=== PATIENT | female | born 1980 | race Caucasian/White ===

== ENCOUNTER 2019-10-03 23:55 | Emergency (ER) | payer SELFPAY ==
--- NOTE | 2019-10-04 00:01 | ED.PDOC ---
History of Present Illness - General Time Seen by Provider: 10/04/19 00:00 Source: patient - History of Present Illness Initial Comments: 39 yo female with PMH of GERD, hx of alcohol abuse who presents with cc of abdominal distension and discomfort. Reports first noticed 2 days ago her abdomen seemed more distended than usual and it has continued to worsen further since then. Reports she usually has a "flat stomach" but now she states she feels like she is 6+ months . Reports mild generalized discomfort which radiates to her back, not worsened by position changes. Reports having normal BM's and passing gas without issue. Reports some nausea but no emesis. Denies any urinary sx's, chest pain, cough, fevers. Reports she feels her stomach has become so bloated it is making it slightly difficult to breathe. No meds tried at home for relief. Reports hx of heavy daily alcohol abuse for about 10 years, states quit 9 months ago and has been sober since. No known/reported liver disease. States she just moved here from [place], [place] as she just got and came to stay with her mother. Does not have a PCP. Takes citalopram, PRN albuterol, and Protonix as only medications. States about 6 months ago she had a bleeding peptic ulcer and had to EGD in [place], [place] at that time. Allergies/Adverse Reactions: Allergies NO KNOWN ALLERGY Allergy (Verified 10/04/19 01:11) Review of Systems - Review of Systems Review of Systems: 10/04/19 00:47 as per HPI All other Systems: Reviewed and Negative Family Medical History - Family History Mother Family History: No Known Physical Exam - Physical Exam General Appearance: Alert, Comfortable, No apparent distress Eye Exam: bilateral normal Ears, Nose, Throat: hearing grossly normal, normal ENT inspection, normal pharynx Neck: non-tender, full range of motion, supple, normal inspection Respiratory: chest non-tender, lungs clear, normal breath sounds, no respiratory distress, no accessory muscle use Cardiovascular/Chest: normal peripheral pulses, regular rate, rhythm, no gallop, no JVD, no murmur Peripheral Pulses: radial,right: 2+, radial,left: 2+ Gastrointestinal/Abdominal: normal bowel sounds, soft, no organomegaly, tend erness - moderate generalized ttp w/o rebound or guarding Back Exam: normal inspection, no CVA tenderness, no vertebral tenderness Extremity: normal range of motion, non-tender, no calf tenderness, normal capillary refill, pedal edema - trace BL LE edema Neurologic: steeler II-XII nml as tested, no motor/sensory deficits, alert, normal mood/affect, oriented x 3 Skin Exam: normal color, warm/dry Progress - Progress Progress: 10/04/19 00:48 Abdominal distension -pt stable, NAD, has some discomfort complaints but it seems she is more concerned with the appearance of her distended abdomen mostly -given her alcohol hx, concern for underlying liver disease and cirrhosis with ascites. Consider also , constipation, bloating, bowel obstruction, ileus, other -check labs, KUB -PIV, 250 NS bolus, Zofran 4 mg IV 10/04/19 01:30 -Labs reveal several minor abnormalities - leukopenia, mild AST elev, mild amylase/lipase elevation - suspect likely 2/2 chronic liver disease from hx of alcohol abuse. Will obtain CT A/P to evaluate for evidence of liver disease, ascites, pancreatitis, etc... 10/04/19 02:20 -CT A/P reveals no acute emergent processes. Mild-moderate stool burden noted throughout the colon - suspect this is likely the cause of her abdominal distension and discomfort. -Other noted findings include: 1) diffuse hepatic steatosis (w/o any evidence of ascites or free fluid) 2) 5 cm multilobulated R ovarian cyst and heterogeneous thickening of uterine endometrium for which radiology recommends no f/u imaging 3) subcentimeter R renal angiomyolipoma -discussed findings with patient - advised treatment plan of PRN laxatives for now. Advised close PCP f/u as well to review labwork and CT findings as well as reassess her symptoms. Return warnings discussed. Dc to home in good condition. Joe Sweeney MD Billing #[id number] 10/04/19 00:19 IV Care:Saline Lock per Protoc QSHIFT Sodium Chloride 0.9% (Flush) [Saline Flush Syringe] 10 ml IV PRN PRN 10/04/19 00:55 Hold Metformin x 48Hrs [id number] Laboratory Results - last 24 hr 10/04/19 10/04/19 10/04/19 00:25 00:25 00:25 WBC 4.1 L RBC 4.35 Hgb 14.4 Hct 41.5 MCV 95.3 MCH 33.0 H MCHC 34.7 RDW 13.6 Plt Count 215 MPV 7.2 L Absolute Neuts (auto) 1.80 Absolute Lymphs (auto) 1.40 Absolute Monos (auto) 0.70 Absolute Eos (auto) 0.10 Absolute Basos (auto) 0.10 Neutrophils % 43.3 Lymphocytes % 33.5 Monocytes % 17.1 H Eosinophils % 3.4 Basophils % 2.7 H Sodium 139 Potassium 3.6 Chloride 107 Carbon Dioxide 25 Anion Gap 10.6 L BUN 6 L Creatinine 0.57 L BUN/Creatinine Ratio 10.5 Random Glucose 90 Serum Osmolality 274.7 L Calcium 9.0 Total Bilirubin 0.6 Direct Bilirubin 0.1 Indirect Bilirubin 0.5 AST 64 H ALT 33 Alkaline Phosphatase 49 Serum Total Protein 7.9 Albumin 4.1 Amylase 110 H Lipase 90 H Urine Color Urine Appearance Urine pH Ur Specific Franklin Urine Protein Urine Glucose (UA) Urine Ketones Urine Blood Urine Nitrite Urine Bilirubin Urine Urobilinogen Ur Leukocyte Esterase Urine RBC Urine WBC Ur Epithelial Cells Urine Bacteria Urine HCG, Qual 10/04/19 10/04/19 00:25 00:50 WBC RBC Hgb Hct MCV MCH MCHC RDW Plt Count MPV Absolute Neuts (auto) Absolute Lymphs (auto) Absolute Monos (auto) Absolute Eos (auto) Absolute Basos (auto) Neutrophils % Lymphocytes % Monocytes % Eosinophils % Basophils % Sodium Potassium Chloride Carbon Dioxide Anion Gap BUN Creatinine BUN/Creatinine Ratio Random Glucose Serum Osmolality Calcium Total Bilirubin Direct Bilirubin Indirect Bilirubin AST ALT Alkaline Phosphatase Serum Total Protein Albumin Amylase Lipase Urine Color Yellow Urine Appearance Clear Urine pH 6.0 Ur Specific Franklin <= 1.005 Urine Protein Negative Urine Glucose (UA) Negative Urine Ketones Negative Urine Blood Negative Urine Nitrite Negative Urine Bilirubin Negative Urine Urobilinogen 0.2 Ur Leukocyte Esterase Negative Urine RBC 0 Urine WBC 0 Ur Epithelial Cells 3-5 Urine Bacteria 0 Urine HCG, Qual Negative Departure - Departure Clinical Impression: Hepatic steatosis Constipation Qualifiers: Constipation type: unspecified constipation type Qualified Code(s): K59.00 - Constipation, unspecified Ovarian cyst Qualifiers: Laterality: right Qualified Code(s): N83.201 - Unspecified ovarian cyst, right side Time of Disposition: 02:09 Disposition: Discharge to Home or Self Care Condition: Good Instructions: Constipation, Adult (DC) Diet: resume usual diet Activity: increase activity as tolerated Additional Instructions: Remain well-hydrated and take OTC laxatives as directed until having regular soft bowel movements and symptoms resolved. Return if symptoms worsening or other concerning symptoms such as fevers, sharp/severe pain, intractable nausea and vomiting, unable to have a bowel movement, etc... Follow up with your primary care doctor in 1-2 weeks for further outpatient evaluation and management.
[2019-10-04] MEDS ORDERED: SODIUM CHLORIDE 0.9% (FLUSH) 10 ML SYG IV PRN (00:19)
[2019-10-04] MEDS ORDERED: ONDANSETRON INJ 4 MG/2 ML VIAL IV ONE (00:20)
[2019-10-04] MEDS ORDERED: SODIUM CHLORIDE 0.9% 250ML 250 ML IVS ONE (00:20)
--- NOTE | 2019-10-04 01:15 | RAD ---
EXAM DESCRIPTION: Abdomen 1 View CLINICAL HISTORY: 39 years, Female, abdominal distension, hx of alcohol abuse COMPARISON: None. FINDINGS: Nonobstructive bowel gas pattern. No air-fluid level or pneumoperitoneum. No abnormal calcifications. No acute osseous abnormality. IMPRESSION: Nonobstructive bowel gas pattern. Electronically signed by: Nolberto Rodríguez DO 10/04/2019 1:13 AM CDT
--- NOTE | 2019-10-04 01:56 | CT ---
PROCEDURE: CT Abdomen and Pelvis With Intravenous Contrast CLINICAL INDICATION: The patient is 39 years old and is Female; abdominal pain and distension TECHNIQUE: Axial computed tomography images of the abdomen and pelvis with intravenous contrast. Sagittal and coronal reformatted images were created and reviewed. This CT exam was performed using one or more of the following dose reduction techniques: automated exposure control, adjustment of the mA and/or kV according to patient size, and/or use of iterative reconstruction technique. DLP: 468 mGy*cm COMPARISON: KUB of the same day. FINDINGS: LUNG BASES: Lung bases are clear. HEART: Visualized heart is normal. ABDOMEN: LIVER: Diffuse hepatic steatosis. GALLBLADDER AND BILE DUCTS: Unremarkable. No calcified stones. No ductal dilation. PANCREAS: Unremarkable. No mass. No ductal dilation. SPLEEN: Unremarkable. No splenomegaly. ADRENALS: Unremarkable. No mass. KIDNEYS AND URETERS: Subcentimeter right renal angiomyolipoma. No hydronephrosis. STOMACH AND BOWEL: Mild to moderate stool burden. No obstruction. No mucosal thickening. PELVIS: APPENDIX: The appendix is seen and is within normal limits. BLADDER: Unremarkable. No mass. REPRODUCTIVE: Multilobular right ovarian cyst measuring approximately 5 cm. Heterogenous thickening of the endometrium. ABDOMEN and PELVIS: INTRAPERITONEAL SPACE: Unremarkable. No free air. No significant fluid collection. BONES/JOINTS: No acute fracture. No dislocation. SOFT TISSUES: Small fat-containing pedicle hernia. VASCULATURE: Unremarkable. No abdominal aortic aneurysm. LYMPH NODES: Unremarkable. No enlarged lymph nodes. OTHER FINDINGS: Multiple level Schmorl's node deformity. IMPRESSION: 1. No acute abdominal or pelvic abnormality. 2. Multilobular right ovarian cyst measuring approximately 5 cm. Heterogenous thickening of the endometrium. No follow-up imaging is recommended. Reference: J Am Viraj Radiol 2013;10:675-681 3. Diffuse hepatic steatosis. 4. Subcentimeter right renal angiomyolipoma. Electronically signed by: Nolberto Rodríguez DO 10/04/2019 1:55 AM CDT
[2019-10-04 03:07] VITALS: O2SAT 97
[2019-10-04 03:11] VITALS: BP 123/80; TEMP 97.8
== END 2019-10-04 02:20 | disposition home or self-care (01) ==
LOC: ER 23:55
DX: K76.0 Fatty (change of) liver, not elsewhere classified (principal); K59.00 Constipation, unspecified; R10.84 Generalized abdominal pain; K21.9 Gastro-esophageal reflux disease without esophagitis; N83.201 Unspecified ovarian cyst, right side; F10.21 Alcohol dependence, in remission
CPT/HCPCS: 74018; 74177; 80048; 80076; 81001; 81025; 82150; 83690; 85025; J2405; J7050